=== PATIENT | male | born 1975 | race African-American/Black ===

== ENCOUNTER 2021-12-17 11:25 | Emergency (ER) | payer SELFPAY ==
[~2021-12-17] VITALS: Ht 182.9 cm; Wt 82.0 kg
[2021-12-17] MEDS ORDERED: NALO4SPR BOTHNSTRLS (12:38)
[2021-12-17 12:51] LABS: CHLORIDE 111 mEq/L (98-107)
[2021-12-17 12:53] VITALS: BP 135/89
[2021-12-17 13:08] LABS: ETHANOL BLOOD < 10 mg/dL
== END 2021-12-17 12:57 | disposition home or self-care (01) ==
LOC: ER 11:41
DX: T40.2X1A Poisoning by other opioids, accidental (unintentional), initial encounter (principal); F11.129 Opioid abuse with intoxication, unspecified; R41.82 Altered mental status, unspecified; Y93.89 Activity, other specified; Y92.488 Other paved roadways as the place of occurrence of the external cause
CPT/HCPCS: 36415; 80053; 80320; 99291; G0480